=== PATIENT | female | born 1955 | race Caucasian/White ===

== ENCOUNTER → 2016-08-21 | Outpatient (CLI) | payer OTHER ==
[~2016-08-21] MED LIST: ALEN70TA2 PO; ATE50T PO; BIOT5TAB3 PO; BUTAPT GT; CHL4PW PO; CHOL20009 PO; CYCL10TA3 OR; GUA5DMLQ GT; LEV50T PO; LOP2C PO; PHEN15TA PO; PRAV20TA3 PO; TOPI50TA32 PO; TRAM-297 PO; VENL37.572 PO
[2016-08-21 11:25] LABS: Albumin 3.1 g/dL (3.4-5.0); BUN/Creatinine Ratio 16.3; Bilirubin, Total 0.3 mg/dL (0.2-1.0); Calcium 8.8 mg/dL (8.5-10.1); Potassium 3.7 mmol/L (3.5-5.1); Total Protein 7.2 g/dL (6.4-8.2)
[2016-08-21 11:27] LABS: Basophils # (auto) 0.1 uL; Basophils % (auto) 1.1 % (0.0-2.0); Eosinophils # (auto) 0.2 uL; Eosinophils % (auto) 2.5 % (0.0-7.0); Hematocrit 36.7 % (36.0-46.0); Hemoglobin 11.8 g/dL (12.2-16.2); Lymphocytes # (auto) 1.8 uL; Lymphocytes % (auto) 23.4 % (10.0-50.0); Mean Corpuscular Hemoglobin 27.8 pg (28.0-32.0); Mean Corpuscular Hgb Conc. 32.1 g/dL (32.0-36.0); Mean Corpuscular Volume 86.4 fL (80.0-100.0); Monocytes # (auto) 0.7 uL; Monocytes % (auto) 8.7 % (0.0-12.0); Neutrophils # (auto) 5.1 uL; Neutrophils % (auto) 64.3 % (37.0-80.0); Platelet Count (auto) 297 10^3/uL (140-450); Red Cell Distribution Width 18.3 % (11.6-16.0); White Blood Cell 7.9 10^3/uL (4.4-10.8)
== END | disposition home or self-care (01) ==
LOC: LAB 08:57
PROVIDERS: ATTEND Internal Medicine
DX: E78.4 Other hyperlipidemia (principal); M06.9 Rheumatoid arthritis, unspecified; I10 Essential (primary) hypertension; E55.9 Vitamin D deficiency, unspecified; G89.29 Other chronic pain
CPT/HCPCS: 36415; 80053; 80061; 82306; 82607; 84443; 84480; 85025

== ENCOUNTER → 2016-12-05 | Outpatient (CLI) | payer OTHER ==
[~2016-12-05] MED LIST changes: +DEXTSYP8 GT; -GUA5DMLQ GT
[2016-12-05 12:26] LABS: Basophils # (auto) 0 uL; Basophils % (auto) 0.7 % (0.0-2.0); CONDITION Y; Eosinophils # (auto) 0.3 uL; Eosinophils % (auto) 4.6 % (0.0-7.0); Hematocrit 36.3 % (36.0-46.0); Hemoglobin 11.7 g/dL (12.2-16.2); Lymphocytes # (auto) 1.8 uL; Lymphocytes % (auto) 30.8 % (10.0-50.0); Mean Corpuscular Hemoglobin 28.3 pg (28.0-32.0); Mean Corpuscular Hgb Conc. 32.3 g/dL (32.0-36.0); Mean Corpuscular Volume 87.7 fL (80.0-100.0); Mean Platelet Volume 7.5 fL (7.4-10.4); Monocytes # (auto) 0.6 uL; Monocytes % (auto) 9.6 % (0.0-12.0); Neutrophils # (auto) 3.2 uL; Neutrophils % (auto) 54.3 % (37.0-80.0); Platelet Count (auto) 296 10^3/uL (140-450); Red Cell Distribution Width 16.3 % (11.6-16.0); White Blood Cell 5.9 10^3/uL (4.4-10.8)
[2016-12-05 13:06] LABS: Albumin 3.2 g/dL (3.4-5.0); BUN/Creatinine Ratio 20.3; Bilirubin, Total 0.2 mg/dL (0.2-1.0); Potassium 4.1 mmol/L (3.5-5.1); Total Protein 7.1 g/dL (6.4-8.2)
== END | disposition home or self-care (01) ==
LOC: LAB 11:39
DX: I10 Essential (primary) hypertension (principal); D64.9 Anemia, unspecified; M06.9 Rheumatoid arthritis, unspecified; M25.50 Pain in unspecified joint; Z79.899 Other long term (current) drug therapy
CPT/HCPCS: 36415; 80053; 85025; 85652; 86141

== ENCOUNTER → 2017-01-27 | Outpatient (CLI) | payer OTHER | END | disposition home or self-care (01) | LOC: LAB 10:45 | PROVIDERS: ATTEND Anesthesiology Pain Medicine | DX: Z51.81 Encounter for therapeutic drug level monitoring (principal) | CPT/HCPCS: 80307 ==

== ENCOUNTER → 2017-02-17 | Outpatient (CLI) | payer OTHER ==
[2017-02-17 15:19] LABS: Basophils # (auto) 0.1 uL; Basophils % (auto) 0.9 % (0.0-2.0); Eosinophils # (auto) 0.4 uL; Eosinophils % (auto) 3.8 % (0.0-7.0); Hematocrit 39.3 % (36.0-46.0); Hemoglobin 12.6 g/dL (12.2-16.2); Lymphocytes # (auto) 2.1 uL; Lymphocytes % (auto) 21.5 % (10.0-50.0); Mean Corpuscular Hemoglobin 28.7 pg (28.0-32.0); Mean Corpuscular Volume 89.8 fL (80.0-100.0); Mean Platelet Volume 7.3 fL (6.9-10.8); Monocytes # (auto) 0.7 uL; Monocytes % (auto) 6.9 % (0.0-12.0); Neutrophils # (auto) 6.7 uL; Neutrophils % (auto) 66.9 % (37.0-80.0); Platelet Count (auto) 328 10^3/uL (140-450); Red Cell Distribution Width 16.2 % (11.8-14.3)
[2017-02-17 16:18] LABS: Albumin 3.3 g/dL (3.4-5.0); BUN/Creatinine Ratio 16.1; Bilirubin, Total 0.3 mg/dL (0.2-1.0); Potassium 3.8 mmol/L (3.5-5.1); Total Protein 7.8 g/dL (6.4-8.2)
== END | disposition home or self-care (01) ==
LOC: LAB 14:24
DX: I10 Essential (primary) hypertension (principal); M06.9 Rheumatoid arthritis, unspecified; D64.9 Anemia, unspecified; E78.00 Pure hypercholesterolemia, unspecified; I70.0 Atherosclerosis of aorta; Z79.899 Other long term (current) drug therapy
CPT/HCPCS: 36415; 80053; 85025; 85652; 86141

== ENCOUNTER → 2017-07-14 | Outpatient (CLI) | payer OTHER ==
[~2017-07-14] MED LIST changes: +DEXT1SYP9 GT; -DEXTSYP8 GT
[2017-07-14 10:32] LABS: Basophils # (auto) 0.1 uL; Basophils % (auto) 1.3 % (0.0-2.0); Eosinophils # (auto) 0.3 uL; Eosinophils % (auto) 3.2 % (0.0-7.0); Hematocrit 39.4 % (36.0-46.0); Hemoglobin 12.2 g/dL (12.2-16.2); Lymphocytes # (auto) 2.3 uL; Lymphocytes % (auto) 26.8 % (10.0-50.0); Mean Corpuscular Hemoglobin 27.4 pg (28.0-32.0); Mean Corpuscular Volume 88.4 fL (80.0-100.0); Monocytes # (auto) 0.7 uL; Monocytes % (auto) 8.5 % (0.0-12.0); Neutrophils # (auto) 5.2 uL; Neutrophils % (auto) 60.2 % (37.0-80.0); Nucleated Red Blood Cells % 0.2 %; Platelet Count (auto) 420 10^3/uL (140-450); Red Blood Cells 4.45 10^6/uL (4.0-5.20); Red Cell Distribution Width 16.5 % (11.8-14.3); White Blood Cell 8.6 10^3/uL (4.4-10.8)
[2017-07-14 12:04] LABS: Albumin 3.3 g/dL (3.4-5.0); BUN/Creatinine Ratio 17.2; Bilirubin, Total 0.2 mg/dL (0.2-1.0); Calcium 9.2 mg/dL (8.5-10.1); Free T4 (Free Thyroxine) 1.4 ng/dL (0.89-1.76); Potassium 4.5 mmol/L (3.5-5.1); Total Protein 7.9 g/dL (6.4-8.2)
[2017-07-14 12:05] LABS: T3 Total 1.03 ng/mL (0.60-1.81)
== END | disposition home or self-care (01) ==
LOC: LAB 09:59
PROVIDERS: ATTEND Physician Assistant
DX: I10 Essential (primary) hypertension (principal); E78.5 Hyperlipidemia, unspecified; E03.9 Hypothyroidism, unspecified; M77.9 Enthesopathy, unspecified; E78.00 Pure hypercholesterolemia, unspecified; M06.9 Rheumatoid arthritis, unspecified; Z79.899 Other long term (current) drug therapy
CPT/HCPCS: 36415; 80053; 80061; 84439; 84443; 84480; 85025

== ENCOUNTER → 2017-11-06 | Outpatient (CLI) | payer OTHER ==
[2017-11-06 12:59] LABS: Protein, Urine 8.7 mg/dL (0.0-11.9)
[2017-11-06 13:07] LABS: Albumin 3.2 g/dL (3.4-5.0); BUN/Creatinine Ratio 11.7; Bilirubin, Total 0.4 mg/dL (0.2-1.0); Calcium 8.8 mg/dL (8.5-10.1); Magnesium 2.5 mg/dL (1.6-2.6); Potassium 3.7 mmol/L (3.5-5.1); Total Protein 7.6 g/dL (6.4-8.2)
== END | disposition home or self-care (01) ==
LOC: LAB 12:04
DX: E21.3 Hyperparathyroidism, unspecified (principal); N39.0 Urinary tract infection, site not specified; E55.9 Vitamin D deficiency, unspecified; I12.9 Hypertensive chronic kidney disease with stage 1 through stage 4 chronic kidney disease, or unspecified chronic kidney disease; N18.3 Chronic kidney disease, stage 3 (moderate); R80.9 Proteinuria, unspecified; M06.9 Rheumatoid arthritis, unspecified; E78.00 Pure hypercholesterolemia, unspecified
CPT/HCPCS: 36415; 80053; 82306; 82570; 83735; 83970; 84156; 87086

== ENCOUNTER 2019-01-18 01:54 | Inpatient (IN) | payer OTHER ==
[~2019-01-18] VITALS: Ht 147.3 cm; Wt 76.3 kg
[2019-01-18 02:39] LABS: Basophils # (auto) 0.1 uL; Basophils % (auto) 1.2 % (0.0-2.0); Eosinophils # (auto) 0.4 uL; Eosinophils % (auto) 4.7 % (0.0-7.0); Hematocrit 42.3 % (36.0-46.0); Hemoglobin 13.6 g/dL (12.2-16.2); Lymphocytes # (auto) 2.8 uL; Lymphocytes % (auto) 32.5 % (10.0-50.0); Mean Corpuscular Hemoglobin 30.3 pg (28.0-32.0); Mean Corpuscular Volume 94.6 fL (80.0-100.0); Monocytes # (auto) 0.8 uL; Neutrophils # (auto) 4.4 uL; Neutrophils % (auto) 51.6 % (37.0-80.0); Nucleated Red Blood Cells % 0.1 %; Platelet Count (auto) 297 10^3/uL (140-450); Red Blood Cells 4.48 10^6/uL (4.0-5.20); Red Cell Distribution Width 14.7 % (11.8-14.3); White Blood Cell 8.5 10^3/uL (4.4-10.8)
[2019-01-18 03:00] LABS: Albumin 2.9 g/dL (3.4-5.0); BUN/Creatinine Ratio 14.5; Potassium 3.9 mmol/L (3.5-5.1)
[2019-01-18 03:02] LABS: Bilirubin, Total 0.3 mg/dL (0.2-1.0); Total Protein 6.4 g/dL (6.4-8.2)
[2019-01-18] MEDS ORDERED: SODIUM CHLORIDE 0.9% 1,000 ML IV ONE (03:30)
[2019-01-18] MEDS ORDERED: SODIUM CHLORIDE 0.9% 1,000 ML IVB ONE (03:45)
[2019-01-18] MEDS ORDERED: GLUCAGON HYDROCHLORIDE (RDNA) 1 MG VIAL IV ONE (03:45)
[2019-01-18 05:04] LABS: INR 0.93 (0.9-1.15); Partial Thromboplastin Time 23.8 sec (23.64-32.05)
[2019-01-18 05:13] LABS: Magnesium 2.3 mg/dL (1.6-2.6)
[2019-01-18 05:16] LABS: Creatine Kinase IFCC 49 U/L (26-192)
[2019-01-18] MEDS ORDERED: ONDANSETRON HCL 4 MG/2 ML VIAL IV PRN (08:45)
[2019-01-18] MEDS ORDERED: ACETAMINOPHEN 500 MG TAB PO PRN (08:45)
[2019-01-18] MEDS ORDERED: TEMAZEPAM 15 MG CAP PO PRN (08:45)
--- NOTE | 2019-01-18 11:32 | NUR ---
Telemetry admit from ER [facility] admitted to Telemetry unit after SBAR received. Patient oriented to Debbie Theodore, primary RN, unit, room, bed, and unit policies regarding patient care and visiting hours. Patient now on continuous telemetry monitoring, tele box # 40 and telemetry reading on arrival to unit is . Weighed by bedscale and encouraged to call if they need something. All questions and concerns addressed, patient verbalized understanding. Note:
[2019-01-18] MEDS: TOPIRAMATE 25 MG TAB PO SCH ×2 (12:00→21:30)
[2019-01-18] MEDS: predniSONE 5 MG TAB PO SCH (12:00)
[2019-01-18] MEDS ORDERED: LEVO150T10 PO (12:14)
[2019-01-18] MEDS ORDERED: PRE5T PO (12:25)
[2019-01-18 13:00] VITALS: BP 139/70
[2019-01-18 13:42] VITALS: BP 109/51
[2019-01-18] MEDS: GABAPENTIN 300 MG CAP PO SCH ×2 (13:46→20:57)
[2019-01-18] MEDS: traMADol HCL 50 MG TAB PO PRN (15:05)
[2019-01-18 17:00] VITALS: BP 151/81
--- NOTE | 2019-01-18 19:25 | NUR ---
assumed care, pt. awake, no c/o pain, not in distress.
[2019-01-18] MEDS: CYCLOBENZAPRINE HCL 10 MG TAB PO PRN (20:57)
[2019-01-18 22:00] VITALS: BP 154/75
[2019-01-19 05:00] VITALS: BP 129/79
[2019-01-19] MEDS: GABAPENTIN 300 MG CAP PO SCH ×3 (05:04→21:04)
[2019-01-19] MEDS: CYCLOBENZAPRINE HCL 10 MG TAB PO PRN ×2 (05:05→21:04)
[2019-01-19] MEDS: traMADol HCL 50 MG TAB PO PRN ×3 (08:34→19:48)
[2019-01-19 09:00] VITALS: BP 133/82
[2019-01-19 10:17] LABS: Basophils # (auto) 0 uL; Basophils % (auto) 0.7 % (0.0-2.0); Eosinophils # (auto) 0.2 uL; Eosinophils % (auto) 4.3 % (0.0-7.0); Hemoglobin 13.6 g/dL (12.2-16.2); Lymphocytes # (auto) 1.4 uL; Lymphocytes % (auto) 26.1 % (10.0-50.0); Mean Corpuscular Hemoglobin 30.2 pg (28.0-32.0); Mean Corpuscular Hgb Conc. 32.3 g/dL (32.0-36.0); Mean Corpuscular Volume 93.5 fL (80.0-100.0); Monocytes # (auto) 0.4 uL; Neutrophils # (auto) 3.3 uL; Neutrophils % (auto) 60.9 % (37.0-80.0); Platelet Count (auto) 210 10^3/uL (140-450); Red Blood Cells 4.49 10^6/uL (4.0-5.20); Red Cell Distribution Width 14.4 % (11.8-14.3); White Blood Cell 5.5 10^3/uL (4.4-10.8)
[2019-01-19 10:31] LABS: BUN/Creatinine Ratio 19.5; Calcium 8.8 mg/dL (8.5-10.1); Potassium 3.5 mmol/L (3.5-5.1)
--- NOTE | 2019-01-19 11:15 | NUR ---
WOUND CARE NOTE: IN TO SEE PATIENT AT THIS TIME PER WOUND CARE CONSULT REQUEST. PATIENT NOTED UPON ADMIT, TO HAVE WOUNDS TO RIGHT CALF. BEDSIDE NURSE PHOTOGRAPHED WOUNDS AT THAT TIME FOR REFERENCE. PATIENT ADMITTED TO [facility] WITH DIAGNOSIS OF SYNCOPE. CURRENT JESSY SCORE IS 17. PATIENT STATED THAT SHE HIT HER LEG AGAINST A HARD SURFACE, RENDERING HER WITH WOUNDS. PATIENT IS NOTED TO HAVE EDEMA, ERYTHEMA TO BILATERAL LOWER EXTREMITIES. SHE HAS TWO OPEN BLISTERS NOTED, DRAINING LIGHT AMOUNTS OF SEROUS DRAINAGE AT THIS TIME. PATIENT'S WOUNDS CLEANSED WITH NS, PATTED DRY WITH STERILE GAUZE. APPLIED THERAHONEY INTO OPEN WOUND BED AREAS. COVERED WITH OPTIFOAM GENTLE DRESSING. ELEVATED PATIENT'S LEGS USING KNEE GATCH FEATURE OF HOSPITAL BED. PATIENT TOLERATED EXAM WELL, NOTING NO PAIN BY PATIENT. RECOMMEND: SKIN/WOUND CARE PLAN, EOD/PRN DRESSING CHANGE TO RIGHT LEG WOUNDS, DIETARY CONSULT FOR WOUNDS, CONTINUED MONITORING BY WOUND CARE TEAM. Addendum: 01/19/19 at 1645 by Mindi Zhu RN Amended: Links added.
[2019-01-19] MEDS: TOPIRAMATE 25 MG TAB PO SCH ×2 (12:33→21:32)
[2019-01-19] MEDS: predniSONE 5 MG TAB PO SCH (12:33)
[2019-01-19 13:00] VITALS: BP 154/77
--- NOTE | 2019-01-19 16:00 | NUR ---
LEFT A MESSAGE WITH PATIENT'S BUILDER OPERATOR DR SALCEDO. [phone]. AWAITING CALL BACK.
[2019-01-19 17:00] VITALS: BP 144/76
--- NOTE | 2019-01-19 17:03 | NUR ---
assessment Patient is a 63 year old female who is alert and oriented. Patients cognitive abilities are intact. Prior to admission patient lived home alone and functioned independently. Patient informed me she is able to care for her own ADLs. Per patient she will return home to her prior living arrangements post discharge and family will transport her home. Patient informed me she has a fww for home use. Patient informed me her PCP is Inés Hammond. Patient informed me she took her nightly medications and had went to the bathroom and fell. Patient thinks she passed out. When she woke up she called 911. Patient was found to have low blood pressure and heart rate. Patient may benefit from home health for medication management. Patient informed me she feels safe returning home on discharge. I informed patient she has a right to speak to a social security benefits interviewer regarding all care. I informed patient she has a right to participate in any and all discharge planning. Patient does not have a POA and advanced directive. I have offered patient information on POA and advanced directives. I informed the patient the advantages and benefits of having an Advanced Directive. Patient verbalized understanding and agreed to discharge plan. Addendum: 01/19/19 at 1707 by Anna VARGAS Amended: Links added.
[2019-01-19] MEDS ORDERED: IOHEXOL 350 MG/ML 100ML IJ ONE (19:14)
--- NOTE | 2019-01-19 19:50 | NUR ---
ASSUMED CARE, PT. AWAKE, C/O PAIN, PAIN MED GIVEN ORDERED, NOT IN DISTRESS.
[2019-01-19 21:49] VITALS: BP 155/82
[2019-01-20] MEDS: GABAPENTIN 300 MG CAP PO SCH ×3 (05:04→21:33)
[2019-01-20] MEDS: CYCLOBENZAPRINE HCL 10 MG TAB PO PRN ×2 (05:04→16:59)
[2019-01-20 05:26] VITALS: BP 128/79
[2019-01-20 08:56] VITALS: BP 144/80
--- NOTE | 2019-01-20 09:06 | NUR ---
AWAKE ALERT ORIENTED TIMES 4 NO SIGNS OF DISTRESS. STILL WAITING FOR CT ANGIO OF CHEST.
--- NOTE | 2019-01-20 09:36 | NUR ---
URINE DRUG SCREEN SENT TO LAB PATIENT TAKEN TO RADIOLOGY VIA WHEELCHAIR FOR CHEST CT ANGIO TO R/O PE. NO SIGNS OF DISTRESS.
[2019-01-20 10:13] LABS: Amphetamine Screen, Urine NEGATIVE (NEGATIVE); Barbiturate Scree,Urine POSITIVE (NEGATIVE); Benzodiazephine Screen, Urine NEGATIVE (NEGATIVE); Cannabinoid Screen, Urine NEGATIVE (NEGATIVE); Cocaine Screen, Urine NEGATIVE (NEGATIVE); Opiate Scree,Urine NEGATIVE (NEGATIVE); Phencyclidine Screen, Urine NEGATIVE (NEGATIVE)
[2019-01-20] MEDS: traMADol HCL 50 MG TAB PO PRN ×2 (11:20→21:34)
[2019-01-20] MEDS: predniSONE 5 MG TAB PO SCH (11:20)
[2019-01-20] MEDS: ENOXAPARIN SOD 40 MG/0.4 ML SYRINGE SC SCH (11:20)
[2019-01-20] MEDS: TOPIRAMATE 25 MG TAB PO SCH ×2 (11:20→21:33)
--- NOTE | 2019-01-20 11:24 | NUR ---
HEART RATE 147 PATIENT RESTING IN CHAIR NO SIGNS OF DISTRESS. PAGED DR Sharonda NELSON ORDERS GIVEN FOR ATENOLOL 50 MG PO ONCE.
--- NOTE | 2019-01-20 11:27 | NUR ---
CAROTID DOPPLER COMPLETED
--- NOTE | 2019-01-20 11:28 | NUR ---
CALLED JAVI IN MRI NO ANSWER. MESSAGE LEFT TO SEE WHEN MRI CAN BE COMPLETED
[2019-01-20] MEDS ORDERED: ATENOLOL 50 MG TAB PO ONE (11:30)
--- NOTE | 2019-01-20 12:41 | NUR ---
TAKEN TO MRI VIA WHEEL CHAIR NO SIGNS OF DISTRESS.
--- NOTE | 2019-01-20 12:54 | NUR ---
NUTRITION CONSULT/ASSESSMENT NOTES Please refer to link notes of nutrition screen form filed under the intervention section of the plan of care for further details. Est. Needs: 1150 kcal to 1550 kcal (15-20 kcal/kgBW), 43 gms to 56 gms pro (1.0-1.2 gms/kgIBW: 43 kg). Will continue to monitor pertinent labs and reassess nutrient need prn Thank you for this consult. Addendum: 01/20/19 at [address] Amended: Links added.
[2019-01-20 13:00] VITALS: BP 134/85
--- NOTE | 2019-01-20 13:27 | NUR ---
RETURNED FROM MRI NO SIGNS OF DISTRESS.
--- NOTE | 2019-01-20 13:28 | NUR ---
PAGED DR ANTONIO TO READ ECHO. AWAITING CALL BACK.
[2019-01-20 17:00] VITALS: BP 125/75
--- NOTE | 2019-01-20 17:22 | NUR ---
ELECTROENCEPHALOGRAM- EEG completed on 01/20/2019.
--- NOTE | 2019-01-20 19:40 | NUR ---
Opening shift note Pt is resting in bedside recliner chair with resp rate even and unlabored. No s/s of any distress noted at this time. Pt has walker at bedside. Pt is with bed very close to chair and bed moved away as to be able to physically assess the pt. Pt states that she will not be comfortable in the bed and does not sleep in a bed at home. Pt has been admitted for syncopal episode and instructed pt to call for stand by assist when getting up OOB and pt verbalizes understanding. POC discussed with pt , bed is low, wheels are locked, and call light is with in reach. Bed alarm unable to be set r/t pt in bedside recliner chair.
[2019-01-20 22:00] VITALS: BP 128/75
[2019-01-21] MEDS: CYCLOBENZAPRINE HCL 10 MG TAB PO PRN (02:12)
--- NOTE | 2019-01-21 02:45 | NUR ---
CHECKED ON PT BECAUSE TELE RETAIL SOLAR ADVISOR CALLED TO REPORT PT OFF TELE. PT HAS STATED THAT SHE HAD GOTTEN UP TO THE BR. EXPLAINED TO PT THAT SHE NEEDS TO KEEP THE TELE BOX ON AT ALL TIMES AND THAT STAFF CAN ASSIST HER TO THE BR NEEDED. PT STATES, " I TAKE IT OFF WHEN I GO TO THE BR BECAUSE IT'S TOO HEAVY TO WRAP AROUND MY NECK. IT CHOKES ME." PT OFFERED A GOWN TO PLACE TELE BOX INTO POCKET AND PT STATES, " I CAN'T WEAR THE GOWNS BECAUSE IT'S TOO MUCH FABRIC TO DEAL WITH WHEN I AM GOING TO THE BR." EXPLAINED SAFETY POLICIES TO PT AND REMINDED HER THAT WE HAD DISCUSSED POC EARLIER THIS EVENING THAT SINCE SHE WILL ONLY SLEEP IN THE RECLINER CHAIR , THAT SHE WOULD CALL FOR STAND BY ASSIST BEFORE GETTING UP. PT VERBALIZES UNDERSTANDING BUT STATES, " WELL THAT WAS BECAUSE I NEEDED SOMEONE TO HELP PUT THE FOOT REST DOWN ON THE CHAIR SO THAT I COULD GET UP OUT OF THE CHAIR AND NOW I HAVE FIGURED OUT HOW TO DO IT BY MYSELF. AND I DON'T WANT TO BOTHER ANYBODY. " EXPLAINED TO PT THAT WE WANT TO BE BY HER SIDE TO ASSIST HER WHEN SHE GETS UP. PT STATES, " WELL I AM NOT GOING TO WEAR THE TELE BOX WHEN I GET UP AND I AM NOT GOING TO BOTHER ANYONE WHEN I GET UP." PT'S MOOD HAS CHANGED SINCE 2 AM. PT HAS BEEN VERY COOPERATIVE AND COMPLIANT FOR MOST OF THE NIGHT UNTIL THIS POINT. WILL CONTINUE TO MONITOR PT Q1HR AND PRN.
[2019-01-21 05:00] VITALS: BP 150/92
[2019-01-21] MEDS: GABAPENTIN 300 MG CAP PO SCH ×2 (06:26→14:00)
--- NOTE | 2019-01-21 06:26 | NUR ---
Pt is in pleasant mood at this time. Morning meds offered. Pt ketty well.
--- NOTE | 2019-01-21 08:57 | NUR ---
DR. NELSON SAW PATIENT AND DISCUSSED POC, NEW ORDERS FOR DISCHARGE. PT AWARE. PT REPORTS SHE IS ABLE TO AMBULATE INDEPENDENTLY AND REQUESTS A SHOWER. MD AGREED TO SHOWER. WILL CONTINUE TO MONITOR.
[2019-01-21 09:38] VITALS: BP 124/87
[2019-01-21] MEDS: traMADol HCL 50 MG TAB PO PRN (09:38)
[2019-01-21] MEDS: predniSONE 5 MG TAB PO SCH (09:39)
[2019-01-21] MEDS: TOPIRAMATE 25 MG TAB PO SCH (09:39)
[2019-01-21] MEDS: ENOXAPARIN SOD 40 MG/0.4 ML SYRINGE SC SCH (09:40)
--- NOTE | 2019-01-21 12:40 | NUR ---
PHOTOS TAKEN OF WOUND ON RIGHT CALF. PT REFUSED WOUND CARE AT THIS TIME SHE WOULD LIKE TO TAKE A SHOWER. PT EDUCATED TO USE CALL LIGHT SO IV CAN BE WRAPPED BEFORE SHOWER.
[2019-01-21 13:00] VITALS: BP 98/87
--- NOTE | 2019-01-21 13:20 | NUR ---
Discharge paperwork signed. Pt educated on dc instructions. ATTEMPTED WOUND CARE, PT REFUSED. PT REPORTS SHE WANTS TO LEAVE IT OPEN TO, "DRY OUT." GAVE PT OPTIFOAM TO COVER WOUND AT HOME. PT REPORTED WANTING TO TAKE SHOWER, OFFERED TO WRAP IV, PT REPORTS SHE WILL SHOWER WHEN SHE GETS HOME. PT IRRITATED, SHE REPORTS FINDING PAPER UNDERNEATH HER LUNCH TRAY. CALLED AND LEFT MESSAGE WITH FOOD AND NUTRITION AND REQUESTED NEW TRAY. PT NOW REPORTS SHE DOES NOT WANT NEW TRAY SHE REPORTS SHE WILL EAT AT HOME. PT REPORTS SHE IS WAITING FOR HER RIDE WHICH WILL BE HERE TO PICK HER UP AT APPROX 1430.
== END 2019-01-21 13:00 | disposition home or self-care (01) | DRG 312 ==
LOC: EDBD 01:54 → ER 01:58 → TELE 01:59 → TELE-CENTR 11:06
PROVIDERS: ADMIT Nurse Practitioner Family; ATTEND Family Medicine
PROC: 4A00X4Z Measurement of Central Nervous Electrical Activity, External Approach (ICD-10-PCS; principal; 2019-01-21)
DX: I95.1 Orthostatic hypotension (principal); R00.1 Bradycardia, unspecified; G43.909 Migraine, unspecified, not intractable, without status migrainosus; F32.9 Major depressive disorder, single episode, unspecified; E66.9 Obesity, unspecified; I10 Essential (primary) hypertension; G62.9 Polyneuropathy, unspecified; M06.9 Rheumatoid arthritis, unspecified; E05.80 Other thyrotoxicosis without thyrotoxic crisis or storm; E87.6 Hypokalemia; Z96.653 Presence of artificial knee joint, bilateral; M19.90 Unspecified osteoarthritis, unspecified site; G89.4 Chronic pain syndrome; K44.9 Diaphragmatic hernia without obstruction or gangrene; Z79.83 Long term (current) use of bisphosphonates; Z79.890 Hormone replacement therapy; Z79.899 Other long term (current) drug therapy; Z80.8 Family history of malignant neoplasm of other organs or systems; Z83.3 Family history of diabetes mellitus; Z85.850 Personal history of malignant neoplasm of thyroid; Z88.8 Allergy status to other drugs, medicaments and biological substances; Z68.35 Body mass index [BMI] 35.0-35.9, adult
CPT/HCPCS: 36415; 70450; 70551; 71045; 71275; 80048; 80053; 80307; 82550; 83735; 83880; 84436; 84443; 84481; 84484; 85025; 85379; 85610; 85730; 93005; 93306; 93886; 93970; 94761; 95819; 96361; 96372; 96374; 97116; 97163; 97530; G0378

== ENCOUNTER → 2020-02-28 | Outpatient (CLI) | payer OTHER ==
[~2020-02-28] MED LIST changes: -LEV50T PO; +LEVO150T10 PO; +PRE5T PO
[2020-02-28 11:39] LABS: Hemoglobin 12.1 g/dL (12.2-16.2)
[2020-02-28 11:40] LABS: Hematocrit 37.9 % (36.0-46.0); Mean Corpuscular Hemoglobin 28.8 pg (28.0-32.0); Mean Corpuscular Hgb Conc. 31.9 g/dL (32.0-36.0); Mean Corpuscular Volume 90.4 fL (80.0-100.0); Platelet Count (auto) 534 10^3/uL (140-450); Red Blood Cells 4.19 10^6/uL (4.0-5.20); Red Cell Distribution Width 16.2 % (11.8-14.3); White Blood Cell 13.7 10^3/uL (4.4-10.8)
[2020-02-28 11:57] LABS: Basophils % (manual) 0 (0.0-2.0); Blast Cells 0; Eosinophils % (manual) 0 (0-7); Myelocytes % 0; Promyelocytes % 0; Reactive Lymphocytes 0
[2020-02-28 12:13] LABS: Albumin 2.7 g/dL (3.4-5.0); BUN/Creatinine Ratio 13.1; Calcium 9.3 mg/dL (8.5-10.1); Potassium 4.2 mmol/L (3.5-5.1); Total Protein 7.1 g/dL (6.4-8.2)
[2020-02-28 12:17] LABS: Bilirubin, Total 0.4 mg/dL (0.2-1.0)
[2020-02-28 13:45] LABS: Band Neutrophils % (manual) 5; Lymphocytes % (manual) 10 (10.0-50.0); Metamyelocytes % 1; Monocytes % (manual) 4 (0-12)
== END | disposition home or self-care (01) ==
LOC: LAB 11:23
PROVIDERS: ATTEND Physician Assistant
DX: I10 Essential (primary) hypertension (principal); E66.01 Morbid (severe) obesity due to excess calories; E03.9 Hypothyroidism, unspecified; M06.9 Rheumatoid arthritis, unspecified
CPT/HCPCS: 36415; 80053; 80061; 84443; 85007; 85027

== ENCOUNTER 2020-05-13 11:00 | Inpatient (IN) | payer OTHER ==
[~2020-05-13] VITALS: Ht 147.3 cm; Wt 115.0 kg
[2020-05-13 12:14] LABS: Hemoglobin 11.4 g/dL (12.2-16.2)
[2020-05-13 12:15] LABS: Hematocrit 36.6 % (36.0-46.0); Mean Corpuscular Hemoglobin 27.5 pg (28.0-32.0); Mean Corpuscular Hgb Conc. 31.2 g/dL (32.0-36.0); Mean Corpuscular Volume 88.2 fL (80.0-100.0); Platelet Count (auto) 529 10^3/uL (140-450); Red Blood Cells 4.15 10^6/uL (4.0-5.20); Red Cell Distribution Width 17.7 % (11.8-14.3); White Blood Cell 13.9 10^3/uL (4.4-10.8)
[2020-05-13 12:21] LABS: Basophils % (manual) 0 (0.0-2.0); Blast Cells 0; Metamyelocytes % 0; Promyelocytes % 0; Reactive Lymphocytes 0
[2020-05-13] MEDS ORDERED: SODIUM CHLORIDE 0.9% 1,000 ML IV ONE ×2 (12:30→13:45)
[2020-05-13] MEDS ORDERED: cefTRIAXone 1GM/50ML D5W 50 ML IV ONE (12:30)
[2020-05-13 12:31] LABS: Band Neutrophils % (manual) 1; Eosinophils % (manual) 1 (0-7); Lymphocytes % (manual) 6 (10.0-50.0); Monocytes % (manual) 6 (0-12); Myelocytes % 3
[2020-05-13 12:34] LABS: Chloride 103 mmol/L (98-107); Potassium 4.2 mmol/L (3.5-5.1); Sodium 135 mmol/L (136-145)
[2020-05-13 12:35] LABS: Lactic Acid w/Reflex 3.5 mmol/L (0.4-2.0)
[2020-05-13 12:39] LABS: Urine Bacteria MANY /hpf (None Seen); Urine Blood 2+ /uL (Negative); Urine WBC 4177 /hpf (0 - 5)
[2020-05-13 12:45] LABS: Alanine Aminotransferase 20 U/L (13-56); Albumin 2.4 g/dL (3.4-5.0); Alkaline Phosphatase 225 U/L (45-117); Anion Gap 13 (5-15); Aspartate Aminotransferase 49 U/L (15-37); BUN/Creatinine Ratio 10.5; Bilirubin, Total 0.4 mg/dL (0.2-1.0); Blood Urea Nitrogen 38 mg/dL (7-18); Calcium 8.8 mg/dL (8.5-10.1); Carbon Dioxide 19 mmol/L (21-32); GFR African American 16 mL/min; GFR Non-African American 14 mL/min; Glucose 93 mg/dL (74-106); Total Protein 7.4 g/dL (6.4-8.2)
[2020-05-13] MEDS ORDERED: MORPHINE SULF INJ 2 MG/ML SYRINGE 1ML IV PRN ×3 (13:45→17:45)
[2020-05-13] MEDS ORDERED: NITROGLYCERIN 0.4 MG SL TAB SL PRN (13:45)
[2020-05-13] MEDS ORDERED: ACETAMINOPHEN 500 MG TAB PO PRN ×2 (14:30→17:45)
[2020-05-13] MEDS ORDERED: PROMETHAZINE HCL 25 MG/ML 1ML IV PRN (14:30)
[2020-05-13] MEDS ORDERED: LACTULOSE 20Gm/30ML SOLN PO PRN ×2 (14:30→17:45)
[2020-05-13] MEDS ORDERED: ALBUTEROL SULF HFA 90MCG INH 200DOSE IN PRN (14:30)
[2020-05-13] MEDS ORDERED: traMADol HCL 50 MG TAB PO PRN ×2 (14:30→17:45)
[2020-05-13] MEDS ORDERED: TEMAZEPAM 15 MG CAP PO PRN ×2 (14:30→17:45)
[2020-05-13] MEDS: SODIUM CHLORIDE 0.9% 1,000 ML IV SCH ×2 (15:53→21:48)
[2020-05-13] MEDS: ENOXAPARIN SOD 120 MG/0.8 ML SYRINGE SC SCH (17:20)
[2020-05-13] MEDS ORDERED: ONDANSETRON HCL 4 MG/2 ML VIAL IV PRN (17:45)
[2020-05-13] MEDS ORDERED: BUDESONIDE (INHALATION) 180 MCG IH IN SCH (22:00)
[2020-05-13] MEDS ORDERED: ENOXAPARIN SOD 40 MG/0.4 ML SYRINGE SC SCH (22:00)
[2020-05-13] MEDS ORDERED: FAMOTIDINE 20 MG TAB PO SCH (22:00)
[2020-05-13] MEDS: CLINDAMYCIN 600MG IV 50 ML IV SCH (22:39)
[2020-05-13] MEDS: DOXYCYCLINE 100MG/250ML 250 ML IV SCH (22:45)
[2020-05-13 23:11] LABS: Protein, Urine 438.8 mg/dL (0.0-11.9)
[2020-05-14] VITALS (7 sets, daily range): BP systolic 95–140; BP diastolic 53–61
[2020-05-14] MEDS ORDERED: BUTA-280 PO (05:26)
[2020-05-14] MEDS ORDERED: PRO25I IM (05:26)
[2020-05-14] MEDS ORDERED: HYDR-4072 PO (05:26)
[2020-05-14] MEDS ORDERED: GABA300C10 PO (05:26)
[2020-05-14] MEDS ORDERED: MULT-1018 PO (05:26)
[2020-05-14] MEDS: CLINDAMYCIN 600MG IV 50 ML IV SCH ×3 (05:26→21:58)
[2020-05-14] MEDS: SODIUM CHLORIDE 0.9% 1,000 ML IV SCH (05:31)
[2020-05-14] MEDS ORDERED: ZINC SULFATE 220mg CAP or TAB PO SCH (10:00)
[2020-05-14] MEDS ORDERED: ASCORBIC ACID 1,000 MG TAB PO SCH (10:00)
[2020-05-14] MEDS: DOXYCYCLINE 100MG/250ML 250 ML IV SCH (10:14)
[2020-05-14] MEDS: cefTRIAXone 1GM/50ML D5W 50 ML IV SCH (10:14)
[2020-05-14] MEDS: PANTOPRAZOLE 40 MG TAB PO SCH (10:15)
[2020-05-14] MEDS: CHOLECALCIFEROL (VITD3) 2,000 UNIT CAP/TAB PO SCH (10:15)
[2020-05-14] MEDS: ENOXAPARIN SOD 120 MG/0.8 ML SYRINGE SC SCH (10:15)
[2020-05-14 11:11] LABS: Basophils # (auto) 0.1 10 ^3/uL (0-0.2); Basophils % (auto) 0.6 % (0.0-2.0); Eosinophils # (auto) 0.3 10 ^3/uL (0-0.8); Eosinophils % (auto) 2.6 % (0.0-7.0); Hematocrit 30.6 % (36.0-46.0); Hemoglobin 9.7 g/dL (12.2-16.2); Lymphocytes # (auto) 0.8 10 ^3/uL (0.4-5.4); Lymphocytes % (auto) 6.1 % (10.0-50.0); Mean Corpuscular Hgb Conc. 31.6 g/dL (32.0-36.0); Mean Corpuscular Volume 85.5 fL (80.0-100.0); Monocytes # (auto) 0.4 10 ^3/uL (0-1.3); Monocytes % (auto) 3.4 % (0.0-12.0); Neutrophils % (auto) 87.3 % (37.0-80.0); Platelet Count (auto) 407 10^3/uL (140-450); Red Blood Cells 3.58 10^6/uL (4.0-5.20); Red Cell Distribution Width 17.7 % (11.8-14.3); White Blood Cell 12.7 10^3/uL (4.4-10.8)
[2020-05-14] MEDS ORDERED: SODIUM BICARBONATE 50ML VIAL 50 ML in SOD CHL 0.45% 1,000 ML IV SCH (11:15)
[2020-05-14 11:31] LABS: Albumin 1.8 g/dL (3.4-5.0); Calcium 7.1 mg/dL (8.5-10.1); Potassium 3.7 mmol/L (3.5-5.1)
[2020-05-14 11:34] LABS: BUN/Creatinine Ratio 11.7; Bilirubin, Total 0.2 mg/dL (0.2-1.0); Phosphorus 3.6 mg/dL (2.5-4.90); Total Protein 5.8 g/dL (6.4-8.2)
[2020-05-14] MEDS: CALCIUM CARB 500 MG CHEW TAB PO SCH ×2 (13:16→17:55)
[2020-05-14] MEDS: SODIUM BICARBONATE 50ML VIAL 50 ML in SOD CHL 0.45% 1,000 ML IV SCH (17:18)
[2020-05-15] MEDS: SODIUM BICARBONATE 50ML VIAL 50 ML in SOD CHL 0.45% 1,000 ML IV SCH (05:15)
[2020-05-15] MEDS: CLINDAMYCIN 600MG IV 50 ML IV SCH ×3 (05:34→22:00)
[2020-05-15 07:58] LABS: Basophils # (auto) 0 10 ^3/uL (0-0.2); Basophils % (auto) 0.4 % (0.0-2.0); Hemoglobin 9.3 g/dL (12.2-16.2); Lymphocytes # (auto) 0.9 10 ^3/uL (0.4-5.4); Monocytes # (auto) 0.5 10 ^3/uL (0-1.3); White Blood Cell 11.2 10^3/uL (4.4-10.8)
[2020-05-15 08:00] VITALS: BP 117/72
[2020-05-15 08:03] LABS: Eosinophils # (auto) 0.3 10 ^3/uL (0-0.8); Eosinophils % (auto) 2.5 % (0.0-7.0); Hematocrit 29.8 % (36.0-46.0); Lymphocytes % (auto) 8.1 % (10.0-50.0); Mean Corpuscular Hemoglobin 26.6 pg (28.0-32.0); Mean Corpuscular Hgb Conc. 31.2 g/dL (32.0-36.0); Mean Corpuscular Volume 85.1 fL (80.0-100.0); Monocytes % (auto) 4.7 % (0.0-12.0); Neutrophils # (auto) 9.4 10 ^3/uL (1.6-8.6); Neutrophils % (auto) 84.3 % (37.0-80.0); Nucleated Red Blood Cells % 0.1 %; Platelet Count (auto) 347 10^3/uL (140-450); Red Cell Distribution Width 17.4 % (11.8-14.3)
[2020-05-15 08:31] LABS: BUN/Creatinine Ratio 13.8; Calcium 7.5 mg/dL (8.5-10.1); Potassium 4.2 mmol/L (3.5-5.1)
[2020-05-15] MEDS: cefTRIAXone 1GM/50ML D5W 50 ML IV SCH (09:48)
[2020-05-15] MEDS: CALCIUM CARB 500 MG CHEW TAB PO SCH (09:48)
[2020-05-15] MEDS: PANTOPRAZOLE 40 MG TAB PO SCH (09:48)
[2020-05-15] MEDS: CHOLECALCIFEROL (VITD3) 2,000 UNIT CAP/TAB PO SCH (09:48)
[2020-05-15] MEDS: ASCORBIC ACID 500 MG TAB PO SCH (09:48)
[2020-05-15] MEDS: ENOXAPARIN SOD 120 MG/0.8 ML SYRINGE SC SCH (09:49)
[2020-05-15] MEDS: CALCIUM CARB 500 MG CHEW TAB PO PRN (18:16)
[2020-05-15 20:00] VITALS: BP 104/60
[2020-05-15] MEDS: APIXABAN 5 MG TAB PO SCH (22:00)
[2020-05-16] MEDS: CALCIUM CARB 500 MG CHEW TAB PO PRN (01:08)
[2020-05-16] MEDS: SODIUM BICARBONATE 50ML VIAL 50 ML in SOD CHL 0.45% 1,000 ML IV SCH ×2 (03:28→16:15)
[2020-05-16] MEDS: CLINDAMYCIN 600MG IV 50 ML IV SCH ×2 (06:33→13:27)
[2020-05-16 07:15] LABS: Basophils # (auto) 0 10 ^3/uL (0-0.2); Basophils % (auto) 0.4 % (0.0-2.0); Eosinophils # (auto) 0.2 10 ^3/uL (0-0.8); Eosinophils % (auto) 2.1 % (0.0-7.0); Lymphocytes # (auto) 1.3 10 ^3/uL (0.4-5.4); Monocytes # (auto) 0.6 10 ^3/uL (0-1.3)
[2020-05-16 07:17] LABS: Hematocrit 28.6 % (36.0-46.0); Hemoglobin 9.3 g/dL (12.2-16.2); Lymphocytes % (auto) 13.3 % (10.0-50.0); Mean Corpuscular Hemoglobin 27.5 pg (28.0-32.0); Mean Corpuscular Hgb Conc. 32.6 g/dL (32.0-36.0); Mean Corpuscular Volume 84.4 fL (80.0-100.0); Monocytes % (auto) 6.5 % (0.0-12.0); Neutrophils # (auto) 7.8 10 ^3/uL (1.6-8.6); Neutrophils % (auto) 77.7 % (37.0-80.0); Nucleated Red Blood Cells % 0.1 %; Platelet Count (auto) 334 10^3/uL (140-450); Red Blood Cells 3.39 10^6/uL (4.0-5.20); Red Cell Distribution Width 17.8 % (11.8-14.3)
[2020-05-16 07:21] LABS: Calcium 7.5 mg/dL (8.5-10.1); Potassium 3.2 mmol/L (3.5-5.1)
[2020-05-16 07:23] LABS: BUN/Creatinine Ratio 11.9
[2020-05-16 08:00] VITALS: BP 115/58
[2020-05-16] MEDS: cefTRIAXone 1GM/50ML D5W 50 ML IV SCH (11:07)
[2020-05-16] MEDS: CHOLECALCIFEROL (VITD3) 2,000 UNIT CAP/TAB PO SCH (11:07)
[2020-05-16] MEDS: APIXABAN 5 MG TAB PO SCH (11:07)
[2020-05-16] MEDS: PANTOPRAZOLE 40 MG TAB PO SCH (11:07)
[2020-05-16] MEDS: ASCORBIC ACID 500 MG TAB PO SCH (11:07)
[2020-05-16] MEDS ORDERED: POTASSIUM CHL 20 Meq TABLET PO ONE (12:00)
== END 2020-05-16 17:22 | disposition home or self-care (01) | DRG 871 ==
LOC: ER 11:00 → EDUNIT# 11:00 → EDBD 11:00 → TELE 11:01 → TELE-EAST 23:45
PROVIDERS: ADMIT Internal Medicine; ATTEND Internal Medicine
DX: A41.51 Sepsis due to Escherichia coli [E. coli] (principal); J96.01 Acute respiratory failure with hypoxia; N17.0 Acute kidney failure with tubular necrosis; L03.116 Cellulitis of left lower limb; L03.115 Cellulitis of right lower limb; E87.2 Acidosis; E44.0 Moderate protein-calorie malnutrition; I50.42 Chronic combined systolic (congestive) and diastolic (congestive) heart failure; N39.0 Urinary tract infection, site not specified; I13.0 Hypertensive heart and chronic kidney disease with heart failure and stage 1 through stage 4 chronic kidney disease, or unspecified chronic kidney disease; Z68.43 Body mass index [BMI] 50.0-59.9, adult; I82.413 Acute embolism and thrombosis of femoral vein, bilateral; Z20.822 Contact with and (suspected) exposure to COVID-19; D47.3 Essential (hemorrhagic) thrombocythemia; E66.01 Morbid (severe) obesity due to excess calories; D63.8 Anemia in other chronic diseases classified elsewhere; G62.9 Polyneuropathy, unspecified; G43.909 Migraine, unspecified, not intractable, without status migrainosus; N18.9 Chronic kidney disease, unspecified; E79.0 Hyperuricemia without signs of inflammatory arthritis and tophaceous disease; B96.20 Unspecified Escherichia coli [E. coli] as the cause of diseases classified elsewhere; M19.90 Unspecified osteoarthritis, unspecified site; F32.9 Major depressive disorder, single episode, unspecified; E78.5 Hyperlipidemia, unspecified; E03.9 Hypothyroidism, unspecified; M81.0 Age-related osteoporosis without current pathological fracture; M54.5 Low back pain; G89.29 Other chronic pain; Z83.3 Family history of diabetes mellitus; Z88.8 Allergy status to other drugs, medicaments and biological substances; Z80.8 Family history of malignant neoplasm of other organs or systems; Z85.850 Personal history of malignant neoplasm of thyroid; Z79.899 Other long term (current) drug therapy
CPT/HCPCS: 36415; 51702; 71045; 76775; 78582; 80048; 80053; 81001; 82306; 82570; 83605; 83970; 84100; 84156; 84300; 84484; 84550; 85007; 85025; 85027; 85379; 87040; 87086; 87088; 87426; 93005; 93306; 93970; 96361; 96365; 96367; 96372; 97110; 97116; 97530; G0378; J0696; J2405; J3490

== ENCOUNTER 2020-07-13 19:00 | Inpatient (IN) | payer OTHER ==
[~2020-07-13] VITALS: Ht 162.6 cm; Wt 106.2 kg
[~2020-07-13 19:00] MED LIST changes: -ALEN70TA2 PO; -BIOT5TAB3 PO; +BUTA-280 PO; -BUTAPT GT; -CHL4PW PO; -CHOL20009 PO; -DEXT1SYP9 GT; +GABA300C10 PO; +HYDR-4072 PO; -LOP2C PO; +MULT-1018 PO; -PHEN15TA PO; -PRAV20TA3 PO; +PRO25I IM
[2020-07-13 20:00] VITALS: BP 134/70
[2020-07-13] MEDS ORDERED: MORPHINE SULFATE 4 MG/ML SYR/VIAL IV PRN (21:45)
[2020-07-13] MEDS ORDERED: ONDANSETRON HCL 4 MG/2 ML VIAL IV PRN (21:45)
[2020-07-13] MEDS ORDERED: SODIUM CHLORIDE 0.9% 1,000 ML IV SCH (21:45)
[2020-07-13 22:00] VITALS: BP 129/61
[2020-07-13] MEDS: PIPERACILLIN-TAZO 4.5GM 100 ML IV SCH (22:40)
[2020-07-13] MEDS: HYDROcodone-ACET 10/325MG TAB PO PRN (22:52)
[2020-07-13 23:12] LABS: Basophils # (auto) 0.1 10 ^3/uL (0-0.2); Basophils % (auto) 0.6 % (0.0-2.0); Eosinophils # (auto) 0.2 10 ^3/uL (0-0.8); Eosinophils % (auto) 2.4 % (0.0-7.0); Hematocrit 29.7 % (36.0-46.0); Hemoglobin 9.4 g/dL (12.2-16.2); Lymphocytes # (auto) 1.3 10 ^3/uL (0.4-5.4); Lymphocytes % (auto) 13.5 % (10.0-50.0); Mean Corpuscular Hemoglobin 27.3 pg (28.0-32.0); Mean Corpuscular Hgb Conc. 31.6 g/dL (32.0-36.0); Mean Corpuscular Volume 86.2 fL (80.0-100.0); Monocytes # (auto) 0.5 10 ^3/uL (0-1.3); Monocytes % (auto) 4.9 % (0.0-12.0); Neutrophils # (auto) 7.5 10 ^3/uL (1.6-8.6); Neutrophils % (auto) 78.6 % (37.0-80.0); Platelet Count (auto) 241 10^3/uL (140-450); Red Blood Cells 3.44 10^6/uL (4.0-5.20); Red Cell Distribution Width 18.9 % (11.8-14.3); White Blood Cell 9.5 10^3/uL (4.4-10.8)
[2020-07-13 23:38] LABS: Albumin 2.3 g/dL (3.4-5.0); Calcium 8.7 mg/dL (8.5-10.1); Potassium 3.2 mmol/L (3.5-5.1)
[2020-07-13 23:43] LABS: BUN/Creatinine Ratio 20.5; Bilirubin, Total 0.4 mg/dL (0.2-1.0); Total Protein 5.3 g/dL (6.4-8.2)
[2020-07-14] MEDS ORDERED: D5W/SOD CHL 0.45% 1,000 ML IV SCH (01:00)
[2020-07-14] MEDS ORDERED: MORPHINE SULFATE 4 MG/ML SYR/VIAL IV PRN (01:00)
[2020-07-14] MEDS ORDERED: TEMAZEPAM 15 MG CAP PO PRN (01:00)
[2020-07-14] MEDS ORDERED: MORPHINE SULF INJ 2 MG/ML SYRINGE 1ML IV PRN (01:00)
[2020-07-14] MEDS ORDERED: HYDROcodone-ACET 5/325MG TAB PO PRN (01:00)
[2020-07-14] MEDS ORDERED: ACETAMINOPHEN 325 MG TAB PO PRN (01:00)
[2020-07-14] MEDS ORDERED: NITROGLYCERIN 0.4 MG SL TAB SL PRN (01:00)
[2020-07-14] MEDS ORDERED: ALBUMIN 25% 50 ML IV ONE (01:15)
[2020-07-14] MEDS: POTASSIUM CHL 20MEQ/100ML 100 ML IV SCH ×3 (04:24→08:46)
[2020-07-14 05:00] VITALS: BP 126/59
[2020-07-14 07:49] LABS: Urine Bacteria FEW /hpf (None Seen); Urine Blood 1+ /uL (Negative); Urine Hyaline Cast FEW /lpf (0 - 2); Urine Specific Gravity 1.024 (1.001-1.035); Urine WBC 87 /hpf (0 - 5)
[2020-07-14 08:00] VITALS: BP 123/70
[2020-07-14] MEDS: PIPERACILLIN-TAZO 4.5GM 100 ML IV SCH (08:46)
[2020-07-14 09:00] VITALS: BP 123/70
[2020-07-14] MEDS: HYDROcodone-ACET 10/325MG TAB PO PRN ×2 (09:56→20:45)
[2020-07-14] MEDS ORDERED: PANTOPRAZOLE 40 MG/10 ML VIAL INJ IV SCH ×2 (10:00→22:00)
[2020-07-14] MEDS ORDERED: ENOXAPARIN SOD 40 MG/0.4 ML SYRINGE SC SCH (10:00)
[2020-07-14] MEDS ORDERED: predniSONE 5 MG TAB PO ONE (12:30)
[2020-07-14 13:00] VITALS: BP 110/78
[2020-07-14 13:28] LABS: Basophils # (auto) 0.1 10 ^3/uL (0-0.2); Basophils % (auto) 0.9 % (0.0-2.0); Eosinophils # (auto) 0.7 10 ^3/uL (0-0.8); Eosinophils % (auto) 6.7 % (0.0-7.0); Hematocrit 35.1 % (36.0-46.0); Hemoglobin 10.7 g/dL (12.2-16.2); Lymphocytes # (auto) 1.2 10 ^3/uL (0.4-5.4); Lymphocytes % (auto) 12.7 % (10.0-50.0); Mean Corpuscular Hemoglobin 26.4 pg (28.0-32.0); Mean Corpuscular Hgb Conc. 30.6 g/dL (32.0-36.0); Mean Corpuscular Volume 86.2 fL (80.0-100.0); Monocytes # (auto) 0.5 10 ^3/uL (0-1.3); Monocytes % (auto) 5.2 % (0.0-12.0); Neutrophils # (auto) 7.3 10 ^3/uL (1.6-8.6); Neutrophils % (auto) 74.5 % (37.0-80.0); Nucleated Red Blood Cells % 0.1 %; Platelet Count (auto) 324 10^3/uL (140-450); Red Blood Cells 4.08 10^6/uL (4.0-5.20); Red Cell Distribution Width 19.1 % (11.8-14.3); White Blood Cell 9.8 10^3/uL (4.4-10.8)
[2020-07-14] MEDS ORDERED: cefTRIAXone 1GM/50ML D5W 50 ML IV ONE (13:30)
[2020-07-14 13:33] LABS: Albumin 2.6 g/dL (3.4-5.0); Calcium 8.9 mg/dL (8.5-10.1); Potassium 4.2 mmol/L (3.5-5.1)
[2020-07-14 13:35] LABS: % Iron Saturation 11.3 % (15-50)
[2020-07-14 13:37] LABS: BUN/Creatinine Ratio 17.4; Bilirubin, Total 0.4 mg/dL (0.2-1.0)
[2020-07-14] MEDS: GABAPENTIN 300 MG CAP PO SCH ×2 (15:22→22:26)
[2020-07-14 17:03] VITALS: BP 108/77
[2020-07-14 22:00] VITALS: BP 108/69
[2020-07-14] MEDS: ESOMEPRAZOLE 40 MG/5ml VIAL INJ IV SCH (22:26)
[2020-07-14] MEDS: APIXABAN 5 MG TAB PO SCH (22:26)
[2020-07-15 05:00] VITALS: BP 133/80
[2020-07-15 06:03] LABS: Basophils # (auto) 0 10 ^3/uL (0-0.2); Basophils % (auto) 0.6 % (0.0-2.0); Eosinophils # (auto) 0.2 10 ^3/uL (0-0.8); Eosinophils % (auto) 2.5 % (0.0-7.0); Hematocrit 31.1 % (36.0-46.0); Hemoglobin 9.9 g/dL (12.2-16.2); Lymphocytes % (auto) 15.1 % (10.0-50.0); Mean Corpuscular Hemoglobin 26.7 pg (28.0-32.0); Mean Corpuscular Hgb Conc. 31.7 g/dL (32.0-36.0); Mean Corpuscular Volume 84.3 fL (80.0-100.0); Monocytes # (auto) 0.4 10 ^3/uL (0-1.3); Monocytes % (auto) 5.9 % (0.0-12.0); Neutrophils % (auto) 75.9 % (37.0-80.0); Platelet Count (auto) 267 10^3/uL (140-450); Red Blood Cells 3.69 10^6/uL (4.0-5.20); Red Cell Distribution Width 18.5 % (11.8-14.3); White Blood Cell 6.6 10^3/uL (4.4-10.8)
[2020-07-15 06:24] LABS: Potassium 4.2 mmol/L (3.5-5.1)
[2020-07-15] MEDS: LEVOTHYROXINE SODIUM 50 MCG TAB PO SCH (06:25)
[2020-07-15] MEDS: GABAPENTIN 300 MG CAP PO SCH ×3 (06:25→21:27)
[2020-07-15 06:32] LABS: Albumin 2.5 g/dL (3.4-5.0); BUN/Creatinine Ratio 14.9; Bilirubin, Total 0.2 mg/dL (0.2-1.0); Calcium 8.4 mg/dL (8.5-10.1); Total Protein 5.7 g/dL (6.4-8.2)
[2020-07-15 08:00] VITALS: BP 129/71
[2020-07-15 09:00] VITALS: BP 129/71
[2020-07-15] MEDS: ESOMEPRAZOLE 40 MG/5ml VIAL INJ IV SCH ×2 (10:07→21:26)
[2020-07-15] MEDS: cefTRIAXone 1GM/50ML D5W 50 ML IV SCH (10:07)
[2020-07-15] MEDS: VENLAFAXINE HCL 37.5mg XR cap PO SCH (10:08)
[2020-07-15] MEDS: predniSONE 5 MG TAB PO SCH (10:08)
[2020-07-15] MEDS: APIXABAN 5 MG TAB PO SCH (10:09)
[2020-07-15 13:00] VITALS: BP 117/80
[2020-07-15] MEDS: HYDROcodone-ACET 10/325MG TAB PO PRN (16:05)
[2020-07-15] MEDS ORDERED: IOHEXOL 350 MG/ML 100ML IJ ONE (16:14)
[2020-07-15 17:00] VITALS: BP 149/91
[2020-07-15 22:00] VITALS: BP 135/74
[2020-07-15] MEDS ORDERED: ENOXAPARIN SOD 100 MG/1 ML SYRINGE SC SCH (22:00)
[2020-07-16 05:30] VITALS: BP 121/76
[2020-07-16] MEDS: GABAPENTIN 300 MG CAP PO SCH ×3 (06:22→21:24)
[2020-07-16] MEDS: LEVOTHYROXINE SODIUM 50 MCG TAB PO SCH (06:22)
[2020-07-16 07:28] LABS: Basophils # (auto) 0.1 10 ^3/uL (0-0.2); Eosinophils # (auto) 0.4 10 ^3/uL (0-0.8); Eosinophils % (auto) 6.2 % (0.0-7.0); Hematocrit 31.9 % (36.0-46.0); Lymphocytes # (auto) 1.5 10 ^3/uL (0.4-5.4); Lymphocytes % (auto) 24.2 % (10.0-50.0); Mean Corpuscular Hemoglobin 27.1 pg (28.0-32.0); Mean Corpuscular Hgb Conc. 31.3 g/dL (32.0-36.0); Mean Corpuscular Volume 86.4 fL (80.0-100.0); Monocytes # (auto) 0.5 10 ^3/uL (0-1.3); Neutrophils # (auto) 3.6 10 ^3/uL (1.6-8.6); Neutrophils % (auto) 60.6 % (37.0-80.0); Platelet Count (auto) 264 10^3/uL (140-450); Red Blood Cells 3.69 10^6/uL (4.0-5.20); Red Cell Distribution Width 18.8 % (11.8-14.3)
[2020-07-16 07:42] LABS: Calcium 8.9 mg/dL (8.5-10.1); Potassium 3.5 mmol/L (3.5-5.1)
[2020-07-16 07:45] LABS: BUN/Creatinine Ratio 14.1
[2020-07-16 08:45] VITALS: BP 143/86
[2020-07-16] MEDS: cefTRIAXone 1GM/50ML D5W 50 ML IV SCH (09:46)
[2020-07-16] MEDS: predniSONE 5 MG TAB PO SCH (09:46)
[2020-07-16] MEDS: ESOMEPRAZOLE 40 MG/5ml VIAL INJ IV SCH (09:46)
[2020-07-16] MEDS: VENLAFAXINE HCL 37.5mg XR cap PO SCH (09:47)
[2020-07-16 11:22] LABS: Folate (Folic Acid) 18.76 ng/mL (5.38-24)
[2020-07-16 12:34] VITALS: BP 140/57
[2020-07-16 16:51] VITALS: BP 117/76
[2020-07-16] MEDS: APIXABAN 5 MG TAB PO SCH (21:24)
[2020-07-16 22:00] VITALS: BP 134/82
[2020-07-17 05:00] VITALS: BP 129/76
[2020-07-17] MEDS: LEVOTHYROXINE SODIUM 50 MCG TAB PO SCH (06:42)
[2020-07-17] MEDS: GABAPENTIN 300 MG CAP PO SCH ×2 (06:42→14:00)
[2020-07-17 09:00] VITALS: BP 119/78
[2020-07-17] MEDS: predniSONE 5 MG TAB PO SCH (09:19)
[2020-07-17] MEDS: cefTRIAXone 1GM/50ML D5W 50 ML IV SCH (09:19)
[2020-07-17] MEDS: APIXABAN 5 MG TAB PO SCH (09:19)
[2020-07-17] MEDS: VENLAFAXINE HCL 37.5mg XR cap PO SCH (09:19)
[2020-07-17] MEDS ORDERED: PANTOPRAZOLE 40 MG TAB PO SCH (10:00)
[2020-07-17 12:49] VITALS: BP 98/77
[2020-07-17] MEDS ORDERED: ATENOLOL 25 MG TAB PO ONE (13:00)
== END 2020-07-17 16:45 | disposition home health service (06) | DRG 439 ==
LOC: TELE-WESTW 19:00
PROVIDERS: ADMIT Family Medicine; ATTEND Internal Medicine
PROC: 05HB33Z Insertion of Infusion Device into Right Basilic Vein, Percutaneous Approach (ICD-10-PCS; principal; 2020-07-15)
PROC: B54MZZA Ultrasonography of Right Upper Extremity Veins, Guidance (ICD-10-PCS; 2020-07-15)
DX: K85.90 Acute pancreatitis without necrosis or infection, unspecified (principal); N39.0 Urinary tract infection, site not specified; E87.2 Acidosis; I82.411 Acute embolism and thrombosis of right femoral vein; I82.431 Acute embolism and thrombosis of right popliteal vein; I82.412 Acute embolism and thrombosis of left femoral vein; I10 Essential (primary) hypertension; E87.6 Hypokalemia; M06.9 Rheumatoid arthritis, unspecified; E03.9 Hypothyroidism, unspecified; K58.0 Irritable bowel syndrome with diarrhea; G62.9 Polyneuropathy, unspecified; E88.09 Other disorders of plasma-protein metabolism, not elsewhere classified; Z20.822 Contact with and (suspected) exposure to COVID-19; D72.829 Elevated white blood cell count, unspecified; E78.5 Hyperlipidemia, unspecified; M19.90 Unspecified osteoarthritis, unspecified site; E66.01 Morbid (severe) obesity due to excess calories; F32.9 Major depressive disorder, single episode, unspecified; G89.29 Other chronic pain; Z80.8 Family history of malignant neoplasm of other organs or systems; Z86.718 Personal history of other venous thrombosis and embolism; Z87.440 Personal history of urinary (tract) infections; Z88.8 Allergy status to other drugs, medicaments and biological substances; Z79.01 Long term (current) use of anticoagulants
CPT/HCPCS: 36415; 71045; 71275; 80048; 80053; 81001; 82150; 82607; 82746; 83540; 83550; 83690; 84443; 85025; 87086; 87426; 93970; 97163; C9113; G0378; J0696; J2543; J3480

== ENCOUNTER 2020-07-30 01:19 | Emergency (ER) | payer OTHER ==
[~2020-07-30] VITALS: Ht 147.3 cm; Wt 108.9 kg
[2020-07-30 01:58] LABS: Basophils # (auto) 0.1 10 ^3/uL (0-0.2); Basophils % (auto) 0.8 % (0.0-2.0); Eosinophils # (auto) 0.7 10 ^3/uL (0-0.8); Hemoglobin 11.2 g/dL (12.2-16.2); Lymphocytes # (auto) 1.1 10 ^3/uL (0.4-5.4); Monocytes # (auto) 0.6 10 ^3/uL (0-1.3); Monocytes % (auto) 5.6 % (0.0-12.0)
[2020-07-30 02:00] LABS: Eosinophils % (auto) 6.6 % (0.0-7.0); Hematocrit 36.5 % (36.0-46.0); Lymphocytes % (auto) 9.9 % (10.0-50.0); Mean Corpuscular Hemoglobin 26.9 pg (28.0-32.0); Mean Corpuscular Hgb Conc. 30.8 g/dL (32.0-36.0); Mean Corpuscular Volume 87.1 fL (80.0-100.0); Neutrophils # (auto) 8.7 10 ^3/uL (1.6-8.6); Neutrophils % (auto) 77.1 % (37.0-80.0); Platelet Count (auto) 361 10^3/uL (140-450); Red Blood Cells 4.18 10^6/uL (4.0-5.20); White Blood Cell 11.3 10^3/uL (4.4-10.8)
[2020-07-30 02:13] LABS: INR 1.13 (0.9-1.15); Partial Thromboplastin Time 25.7 sec (23.0-31.2)
[2020-07-30] MEDS ORDERED: HYDROcodone-ACET 10/325MG TAB PO ONE (02:15)
[2020-07-30] MEDS ORDERED: ONDANSETRON ODT 4 MG TAB PO ONE (02:15)
[2020-07-30 02:20] LABS: Alanine Aminotransferase 13 U/L (13-56); Albumin 2.7 g/dL (3.4-5.0); Anion Gap 10 (5-15); Aspartate Aminotransferase 15 U/L (15-37); BUN/Creatinine Ratio 15.4; Blood Urea Nitrogen 16 mg/dL (7-18); Calcium 9.1 mg/dL (8.5-10.1); Carbon Dioxide 22 mmol/L (21-32); Chloride 107 mmol/L (98-107); GFR African American 69 mL/min; GFR Non-African American 57 mL/min; Glucose 125 mg/dL (74-106); Potassium 3.9 mmol/L (3.5-5.1); Sodium 139 mmol/L (136-145)
[2020-07-30 02:25] LABS: Alkaline Phosphatase 100 U/L (45-117); Bilirubin, Total 0.4 mg/dL (0.2-1.0); Total Protein 6.2 g/dL (6.4-8.2)
[2020-07-30 02:34] VITALS: BP 100/55
== END 2020-07-30 05:41 | disposition home or self-care (01) ==
LOC: EDBD 01:19 → ER 01:21
DX: S00.83XA Contusion of other part of head, initial encounter (principal); S40.012A Contusion of left shoulder, initial encounter; S70.01XA Contusion of right hip, initial encounter; S16.1XXA Strain of muscle, fascia and tendon at neck level, initial encounter; G89.29 Other chronic pain; I10 Essential (primary) hypertension; Z79.899 Other long term (current) drug therapy; Z79.01 Long term (current) use of anticoagulants; X58.XXXA Exposure to other specified factors, initial encounter; Y93.89 Activity, other specified; Y92.89 Other specified places as the place of occurrence of the external cause; Y99.8 Other external cause status
CPT/HCPCS: 36415; 70450; 71045; 72125; 73502; 74176; 80053; 83880; 84484; 85025; 85610; 85730; 93005; 99285; J7030; Q0162